=== PATIENT | male | born 1955 | race Two or more races ===

== ENCOUNTER 2020-06-12 15:28 | Outpatient (CLI) | payer MEDICARE | END 2020-06-12 23:59 | disposition home or self-care (01) | LOC: MSC 15:28 | PROVIDERS: ATTEND Internal Medicine | DX: I25.10 Atherosclerotic heart disease of native coronary artery without angina pectoris (principal); I26.99 Other pulmonary embolism without acute cor pulmonale; K51.90 Ulcerative colitis, unspecified, without complications; M45.9 Ankylosing spondylitis of unspecified sites in spine; R91.8 Other nonspecific abnormal finding of lung field; F39 Unspecified mood [affective] disorder; Z79.01 Long term (current) use of anticoagulants; Z79.51 Long term (current) use of inhaled steroids ==

== ENCOUNTER 2020-09-16 13:00 | Outpatient (CLI) | payer MEDICARE | END 2020-09-16 23:59 | disposition home or self-care (01) | LOC: MSC 13:00 | PROVIDERS: ATTEND Internal Medicine | DX: I25.10 Atherosclerotic heart disease of native coronary artery without angina pectoris (principal); Z79.52 Long term (current) use of systemic steroids; I26.99 Other pulmonary embolism without acute cor pulmonale; K51.90 Ulcerative colitis, unspecified, without complications; M45.9 Ankylosing spondylitis of unspecified sites in spine; R91.8 Other nonspecific abnormal finding of lung field; F39 Unspecified mood [affective] disorder ==

== ENCOUNTER 2020-12-28 13:32 | Outpatient (CLI) | payer MEDICARE | END 2020-12-28 23:59 | disposition home or self-care (01) | LOC: MSC 13:32 | PROVIDERS: ATTEND Internal Medicine | DX: I25.10 Atherosclerotic heart disease of native coronary artery without angina pectoris (principal); Z79.01 Long term (current) use of anticoagulants; I10 Essential (primary) hypertension; K51.90 Ulcerative colitis, unspecified, without complications; R91.8 Other nonspecific abnormal finding of lung field; M45.9 Ankylosing spondylitis of unspecified sites in spine; I26.99 Other pulmonary embolism without acute cor pulmonale; F39 Unspecified mood [affective] disorder; Z79.899 Other long term (current) drug therapy ==

== ENCOUNTER 2021-02-05 11:18 | Outpatient (CLI) | payer MEDICARE ==
[2021-02-05 11:59] LABS: BASOPHILS # (AUTO) 0.1 /CMM (0.0-0.2); BASOPHILS % (AUTO) 0.8 % (0.0-2.0); EOSINOPHILS % (AUTO) 3.7 % (0.0-6.0); HEMATOCRIT 43 % (39-51); HEMOGLOBIN 14.4 g/dL (13.5-17.5); LYMPHOCYTES # (AUTO) 1.1 /CMM (0.8-4.8); LYMPHOCYTES % (AUTO) 17.7 % (20.0-44.0); MEAN CORPUSCULAR HGB CONC 34 g/dl (31.0-36.0); MEAN CORPUSCULAR VOLUME 88 fL (80-96); MONOCYTES # (AUTO) 0.4 /CMM (0.1-1.30); MONOCYTES % (AUTO) 6.7 % (2.0-12.0); NEUTROPHILS # (AUTO) 4.6 /CMM (1.8-8.9); NEUTROPHILS % (AUTO) 71.1 % (43.0-81.0); PLATELET COUNT (AUTO) 354 /CMM (150-450); RED BLOOD CELL COUNT(AUTO) 4.87 MIL/uL (4.5-6.0); WHITE BLOOD COUNT (AUTO) 6.5 K/uL (4.3-11.0)
[2021-02-05 12:26] LABS: ALBUMIN 3.5 g/dL (3.4-5.0); BILIRUBIN,TOTAL 0.5 mg/dL (0.2-1.0); CREATININE 1.1 mg/dL (0.6-1.3); POTASSIUM 4.2 mmol/L (3.5-5.1); TOTAL PROTEIN, SERUM 7.5 g/dL (6.4-8.2)
== END 2021-02-05 23:59 | disposition home or self-care (01) ==
LOC: LAB 11:18
DX: Z01.812 Encounter for preprocedural laboratory examination (principal); S96.121D Laceration of muscle and tendon of long extensor muscle of toe at ankle and foot level, right foot, subsequent encounter; X58.XXXD Exposure to other specified factors, subsequent encounter; Y93.89 Activity, other specified; Y92.89 Other specified places as the place of occurrence of the external cause
CPT/HCPCS: 36415; 80053-TC; 85025-TC; 85730-TC

== ENCOUNTER 2021-02-09 07:55 | Outpatient (CLI) | payer MEDICARE | END 2021-02-09 23:59 | disposition home or self-care (01) | LOC: RAD 07:55 | PROVIDERS: ATTEND Internal Medicine | DX: Z01.818 Encounter for other preprocedural examination (principal) | CPT/HCPCS: 71045-TC ==

== ENCOUNTER 2021-02-09 08:36 | Outpatient (CLI) | payer MEDICARE | END 2021-02-09 23:59 | disposition home or self-care (01) | LOC: MSC 08:36 | PROVIDERS: ATTEND Internal Medicine | DX: Z01.818 Encounter for other preprocedural examination (principal); M77.51 Other enthesopathy of right foot and ankle; I25.10 Atherosclerotic heart disease of native coronary artery without angina pectoris; Z98.61 Coronary angioplasty status; I10 Essential (primary) hypertension; K51.90 Ulcerative colitis, unspecified, without complications; R91.8 Other nonspecific abnormal finding of lung field; M45.9 Ankylosing spondylitis of unspecified sites in spine; I26.99 Other pulmonary embolism without acute cor pulmonale; F39 Unspecified mood [affective] disorder; Z79.899 Other long term (current) drug therapy ==

== ENCOUNTER 2021-03-02 11:19 | Outpatient (CLI) | payer MEDICARE | END 2021-03-02 23:59 | disposition home or self-care (01) | LOC: MSC 11:19 | PROVIDERS: ATTEND Internal Medicine | DX: R05 Cough (principal); Z98.890 Other specified postprocedural states; I25.10 Atherosclerotic heart disease of native coronary artery without angina pectoris; Z98.61 Coronary angioplasty status; I10 Essential (primary) hypertension; K51.90 Ulcerative colitis, unspecified, without complications; R91.8 Other nonspecific abnormal finding of lung field; M45.9 Ankylosing spondylitis of unspecified sites in spine; I26.99 Other pulmonary embolism without acute cor pulmonale; F39 Unspecified mood [affective] disorder; Z79.899 Other long term (current) drug therapy ==

== ENCOUNTER 2021-04-14 15:00 | Outpatient (CLI) | payer MEDICARE | END 2021-04-14 23:59 | disposition home or self-care (01) | LOC: MSC 15:00 | PROVIDERS: ATTEND Internal Medicine | DX: R05 Cough (principal); R49.0 Dysphonia; Z98.890 Other specified postprocedural states; I25.10 Atherosclerotic heart disease of native coronary artery without angina pectoris; Z98.61 Coronary angioplasty status; I10 Essential (primary) hypertension; K51.90 Ulcerative colitis, unspecified, without complications; R91.8 Other nonspecific abnormal finding of lung field; M45.9 Ankylosing spondylitis of unspecified sites in spine; I26.99 Other pulmonary embolism without acute cor pulmonale; F39 Unspecified mood [affective] disorder; Z79.899 Other long term (current) drug therapy ==

== ENCOUNTER 2021-04-16 09:44 | Outpatient (CLI) | payer MEDICARE | END 2021-04-16 23:59 | disposition home or self-care (01) | LOC: CT 09:44 | PROVIDERS: ATTEND Internal Medicine | DX: E04.1 Nontoxic single thyroid nodule (principal); I25.10 Atherosclerotic heart disease of native coronary artery without angina pectoris; I70.0 Atherosclerosis of aorta; J98.4 Other disorders of lung; M47.819 Spondylosis without myelopathy or radiculopathy, site unspecified | CPT/HCPCS: 70490-TC; 71250-TC ==

== ENCOUNTER 2021-04-19 16:00 | Outpatient (CLI) | payer MEDICARE | END 2021-04-19 23:59 | disposition home or self-care (01) | LOC: MSC 16:00 | PROVIDERS: ATTEND Internal Medicine | DX: R49.0 Dysphonia (principal); R05 Cough; R91.8 Other nonspecific abnormal finding of lung field; I25.10 Atherosclerotic heart disease of native coronary artery without angina pectoris; Z98.61 Coronary angioplasty status; I10 Essential (primary) hypertension; K51.90 Ulcerative colitis, unspecified, without complications; M45.9 Ankylosing spondylitis of unspecified sites in spine; I26.99 Other pulmonary embolism without acute cor pulmonale; F39 Unspecified mood [affective] disorder; Z79.899 Other long term (current) drug therapy ==

== ENCOUNTER 2021-04-22 14:15 | Outpatient (CLI) | payer MEDICARE | END 2021-04-22 23:59 | disposition home or self-care (01) | LOC: MSC 14:15 | PROVIDERS: ATTEND Internal Medicine | DX: I26.99 Other pulmonary embolism without acute cor pulmonale (principal); I27.82 Chronic pulmonary embolism; Z79.01 Long term (current) use of anticoagulants; R05 Cough; R49.0 Dysphonia; I25.10 Atherosclerotic heart disease of native coronary artery without angina pectoris; Z98.61 Coronary angioplasty status; I10 Essential (primary) hypertension; K51.90 Ulcerative colitis, unspecified, without complications; R91.8 Other nonspecific abnormal finding of lung field; M45.9 Ankylosing spondylitis of unspecified sites in spine; F39 Unspecified mood [affective] disorder ==

== ENCOUNTER 2021-09-13 13:00 | Outpatient (CLI) | payer MEDICARE | END 2021-09-13 23:59 | disposition home or self-care (01) | LOC: MSC 13:00 | PROVIDERS: ATTEND Internal Medicine | DX: Z51.89 Encounter for other specified aftercare (principal); I27.82 Chronic pulmonary embolism; Z79.01 Long term (current) use of anticoagulants; R05.9 Cough, unspecified; I25.10 Atherosclerotic heart disease of native coronary artery without angina pectoris; Z98.61 Coronary angioplasty status; I10 Essential (primary) hypertension; K51.90 Ulcerative colitis, unspecified, without complications; R91.8 Other nonspecific abnormal finding of lung field; M45.9 Ankylosing spondylitis of unspecified sites in spine; F39 Unspecified mood [affective] disorder; Z79.899 Other long term (current) drug therapy ==

== ENCOUNTER → 2021-09-23 | Outpatient (CLI) | payer MEDICARE | END | disposition home or self-care (01) | LOC: MSC 11:30 | PROVIDERS: ATTEND Internal Medicine | DX: Z51.89 Encounter for other specified aftercare (principal); I26.99 Other pulmonary embolism without acute cor pulmonale; R05.9 Cough, unspecified; I10 Essential (primary) hypertension; I25.10 Atherosclerotic heart disease of native coronary artery without angina pectoris; K51.90 Ulcerative colitis, unspecified, without complications; R91.8 Other nonspecific abnormal finding of lung field; M45.9 Ankylosing spondylitis of unspecified sites in spine; F39 Unspecified mood [affective] disorder ==

== ENCOUNTER → 2021-10-21 | Outpatient (CLI) | payer MEDICARE | END | disposition home or self-care (01) | LOC: MSC 04-22 14:15 | PROVIDERS: ATTEND Internal Medicine | DX: R53.83 Other fatigue (principal); I27.82 Chronic pulmonary embolism; Z79.01 Long term (current) use of anticoagulants; R05.9 Cough, unspecified; I10 Essential (primary) hypertension; I25.10 Atherosclerotic heart disease of native coronary artery without angina pectoris; Z98.61 Coronary angioplasty status; K51.90 Ulcerative colitis, unspecified, without complications; R91.8 Other nonspecific abnormal finding of lung field; M45.9 Ankylosing spondylitis of unspecified sites in spine; F39 Unspecified mood [affective] disorder ==

== ENCOUNTER 2021-11-16 09:47 | Outpatient (CLI) | payer MEDICARE | END 2021-11-16 23:59 | disposition home or self-care (01) | LOC: MSC 09:47 | PROVIDERS: ATTEND Internal Medicine | DX: R53.83 Other fatigue (principal); I26.99 Other pulmonary embolism without acute cor pulmonale; I27.82 Chronic pulmonary embolism; Z79.01 Long term (current) use of anticoagulants; R05.9 Cough, unspecified; I25.10 Atherosclerotic heart disease of native coronary artery without angina pectoris; Z98.61 Coronary angioplasty status; I10 Essential (primary) hypertension; K51.90 Ulcerative colitis, unspecified, without complications; R91.8 Other nonspecific abnormal finding of lung field; M45.9 Ankylosing spondylitis of unspecified sites in spine; F39 Unspecified mood [affective] disorder ==

== ENCOUNTER 2021-11-25 11:00 | Outpatient (CLI) | payer MEDICARE | END 2021-11-25 23:59 | disposition home or self-care (01) | LOC: MSC 11:00 | PROVIDERS: ATTEND Internal Medicine | DX: R53.83 Other fatigue (principal); R05.9 Cough, unspecified; I27.82 Chronic pulmonary embolism; Z79.01 Long term (current) use of anticoagulants; I10 Essential (primary) hypertension; I25.10 Atherosclerotic heart disease of native coronary artery without angina pectoris; Z98.61 Coronary angioplasty status; K51.90 Ulcerative colitis, unspecified, without complications; R91.8 Other nonspecific abnormal finding of lung field; M45.9 Ankylosing spondylitis of unspecified sites in spine; F39 Unspecified mood [affective] disorder ==

== ENCOUNTER → 2022-02-02 | Outpatient (CLI) | payer MEDICARE, BC | END | disposition home or self-care (01) | LOC: MSC 15:00 | PROVIDERS: ATTEND Internal Medicine | DX: Z51.89 Encounter for other specified aftercare (principal); R53.81 Other malaise; I27.82 Chronic pulmonary embolism; Z79.01 Long term (current) use of anticoagulants; R91.8 Other nonspecific abnormal finding of lung field; R05.1 Acute cough; I25.10 Atherosclerotic heart disease of native coronary artery without angina pectoris; Z98.61 Coronary angioplasty status; K51.90 Ulcerative colitis, unspecified, without complications; M45.9 Ankylosing spondylitis of unspecified sites in spine; F39 Unspecified mood [affective] disorder ==

== ENCOUNTER → 2022-03-11 | Outpatient (CLI) | payer MEDICARE, BC | END | disposition home or self-care (01) | LOC: MSC 14:15 | PROVIDERS: ATTEND Internal Medicine | DX: J39.9 Disease of upper respiratory tract, unspecified (principal); R53.81 Other malaise; I27.82 Chronic pulmonary embolism; Z79.01 Long term (current) use of anticoagulants; R91.8 Other nonspecific abnormal finding of lung field; R05.1 Acute cough; I25.10 Atherosclerotic heart disease of native coronary artery without angina pectoris; Z98.61 Coronary angioplasty status; I10 Essential (primary) hypertension; K51.90 Ulcerative colitis, unspecified, without complications; M45.9 Ankylosing spondylitis of unspecified sites in spine; F39 Unspecified mood [affective] disorder ==

== ENCOUNTER 2022-05-23 13:15 | Outpatient (CLI) | payer MEDICARE, BC | END 2022-05-23 23:59 | disposition home or self-care (01) | LOC: MSC 13:15 | PROVIDERS: ATTEND Internal Medicine | DX: U07.1 COVID-19 (principal); R53.81 Other malaise; I27.82 Chronic pulmonary embolism; Z79.01 Long term (current) use of anticoagulants; R05.1 Acute cough; I25.10 Atherosclerotic heart disease of native coronary artery without angina pectoris; Z98.61 Coronary angioplasty status; I10 Essential (primary) hypertension; K51.90 Ulcerative colitis, unspecified, without complications; R91.8 Other nonspecific abnormal finding of lung field; M45.9 Ankylosing spondylitis of unspecified sites in spine; F39 Unspecified mood [affective] disorder ==

== ENCOUNTER → 2022-05-25 | Outpatient (CLI) | payer MEDICARE, BC | END | disposition home or self-care (01) | LOC: MSC 16:15 | PROVIDERS: ATTEND Internal Medicine | DX: U07.1 COVID-19 (principal); R53.81 Other malaise; I27.82 Chronic pulmonary embolism; Z79.01 Long term (current) use of anticoagulants; R05.1 Acute cough; I25.10 Atherosclerotic heart disease of native coronary artery without angina pectoris; Z98.61 Coronary angioplasty status; I10 Essential (primary) hypertension; K51.90 Ulcerative colitis, unspecified, without complications; R91.8 Other nonspecific abnormal finding of lung field; M45.9 Ankylosing spondylitis of unspecified sites in spine; F39 Unspecified mood [affective] disorder ==

== ENCOUNTER 2022-05-30 13:15 | Outpatient (CLI) | payer MEDICARE, BC | END 2022-05-30 23:59 | disposition home or self-care (01) | LOC: MSC 13:15 | PROVIDERS: ATTEND Internal Medicine | DX: U07.1 COVID-19 (principal); R53.81 Other malaise; I27.82 Chronic pulmonary embolism; Z79.01 Long term (current) use of anticoagulants; R05.1 Acute cough; I25.10 Atherosclerotic heart disease of native coronary artery without angina pectoris; Z98.61 Coronary angioplasty status; I10 Essential (primary) hypertension; K51.90 Ulcerative colitis, unspecified, without complications; R91.8 Other nonspecific abnormal finding of lung field; M45.9 Ankylosing spondylitis of unspecified sites in spine; F39 Unspecified mood [affective] disorder ==

== ENCOUNTER 2022-06-22 13:00 | Outpatient (CLI) | payer MEDICARE, BC | END 2022-06-22 23:59 | disposition home or self-care (01) | LOC: MSC 13:00 | PROVIDERS: ATTEND Internal Medicine | DX: R23.2 Flushing (principal); R61 Generalized hyperhidrosis; I27.82 Chronic pulmonary embolism; Z79.01 Long term (current) use of anticoagulants; R91.8 Other nonspecific abnormal finding of lung field; Z86.16 Personal history of COVID-19; J04.0 Acute laryngitis; R53.81 Other malaise; R05.1 Acute cough; I25.10 Atherosclerotic heart disease of native coronary artery without angina pectoris; Z98.61 Coronary angioplasty status; I10 Essential (primary) hypertension; K51.90 Ulcerative colitis, unspecified, without complications; M45.9 Ankylosing spondylitis of unspecified sites in spine; F39 Unspecified mood [affective] disorder ==

== ENCOUNTER 2022-10-13 11:07 | Outpatient (CLI) | payer MEDICARE, BC | END 2022-10-13 23:59 | disposition home or self-care (01) | LOC: MSC 11:07 | PROVIDERS: ATTEND Internal Medicine | DX: Z01.818 Encounter for other preprocedural examination (principal); H26.9 Unspecified cataract; R49.0 Dysphonia; I27.82 Chronic pulmonary embolism; Z79.01 Long term (current) use of anticoagulants; R91.8 Other nonspecific abnormal finding of lung field; Z86.16 Personal history of COVID-19; J04.0 Acute laryngitis; R53.81 Other malaise; R05.1 Acute cough; I25.10 Atherosclerotic heart disease of native coronary artery without angina pectoris; Z98.61 Coronary angioplasty status; I10 Essential (primary) hypertension; K51.90 Ulcerative colitis, unspecified, without complications; M45.9 Ankylosing spondylitis of unspecified sites in spine; F39 Unspecified mood [affective] disorder ==

== ENCOUNTER → 2022-11-02 | Outpatient (CLI) | payer MEDICARE, BC | END | disposition home or self-care (01) | LOC: MSC 14:30 | PROVIDERS: ATTEND Internal Medicine | DX: J06.9 Acute upper respiratory infection, unspecified (principal); Z86.16 Personal history of COVID-19; R49.0 Dysphonia; I27.82 Chronic pulmonary embolism; Z79.01 Long term (current) use of anticoagulants; R91.8 Other nonspecific abnormal finding of lung field; I25.10 Atherosclerotic heart disease of native coronary artery without angina pectoris; Z98.61 Coronary angioplasty status; I10 Essential (primary) hypertension; K51.90 Ulcerative colitis, unspecified, without complications; M45.9 Ankylosing spondylitis of unspecified sites in spine; F39 Unspecified mood [affective] disorder ==

== ENCOUNTER 2023-03-02 10:42 | Outpatient (CLI) | payer MEDICARE, BC | END 2023-03-02 23:59 | disposition home or self-care (01) | LOC: XR 10:42 | PROVIDERS: ATTEND Internal Medicine | DX: Z01.818 Encounter for other preprocedural examination (principal); M47.814 Spondylosis without myelopathy or radiculopathy, thoracic region | CPT/HCPCS: 71046 ==

== ENCOUNTER → 2023-04-04 | Outpatient (CLI) | payer MEDICARE, BC | END | disposition home or self-care (01) | LOC: MSC 09:15 | PROVIDERS: ATTEND Internal Medicine | DX: F41.8 Other specified anxiety disorders (principal); R49.0 Dysphonia; R05.9 Cough, unspecified; I27.82 Chronic pulmonary embolism; Z79.01 Long term (current) use of anticoagulants; R91.8 Other nonspecific abnormal finding of lung field; I25.10 Atherosclerotic heart disease of native coronary artery without angina pectoris; Z98.61 Coronary angioplasty status; I10 Essential (primary) hypertension; K51.90 Ulcerative colitis, unspecified, without complications; M45.9 Ankylosing spondylitis of unspecified sites in spine; F39 Unspecified mood [affective] disorder; Z86.16 Personal history of COVID-19 ==